=== PATIENT | female | born 2000 | race Caucasian/White ===

== ENCOUNTER 2024-04-24 11:00 | Inpatient (IN) ==
[2024-04-24 11:59] LABS: Urine Appearance Clear; Urine Bilirubin Negative (Negative); Urine Blood Negative (Negative); Urine Color Light-Yellow; Urine Glucose Negative (Negative); Urine Ketones Negative (Negative); Urine Nitrite Negative (Negative); Urine Protein Trace (Negative); Urine Specific Gravity 1.017 (1.002-1.030); Urine Urobilinogen Negative (Negative); Urine pH 6.5 (5.0-8.0)
[2024-04-24 12:26] LABS: Urine Benzodiazepine Screen None Detected (None Detect); Urine Cannabinoids Screen Presumptive Positive (None Detect); Urine Opiates Screen None Detected (None Detect)
[2024-04-24] MEDS ORDERED: Al Hydrox/Mg Hydrox/Simet LIQ 30 ML UDC PO PRN (13:15)
[2024-04-24] MEDS: Venlafaxine XR 75 mg PO SCH (14:32)
[2024-04-25 08:59] VITALS: BP 132/86
[2024-04-25] MEDS: risperiDONE-M 1 mg Oradis TAB PO SCH (10:56)
[2024-04-25] MEDS ORDERED: risperiDONE-M 1 mg Oradis TAB PO PRN (16:23)
[2024-04-25] MEDS: risperiDONE-M 1 mg Oradis TAB PO PRN (16:33)
[2024-04-25] MEDS: risperiDONE-M 1 mg Oradis TAB ONE (16:33)
[2024-04-26 08:12] LABS: ABS Basophils 0.1 10^3/uL (0.0-0.1); ABS Eosinophils 0.2 10^3/uL (0.0-0.5); ABS Monocytes 0.9 10^3/uL (0.0-0.9); ABS Neutrophils 6.9 10^3/uL (1.5-7.6); Eosinophil % 1.4 %; Hematocrit 39.7 % (35-45); Hemoglobin 13.1 g/dL (11.5-14.3); Lymphocyte % 27.5 %; Mean Corpuscular Hemoglobin 28.7 pg (27-33); Mean Corpuscular Hgb Conc 33.1 g/dL (31-36); Mean Corpuscular Volume 86.8 fL (80-97); Mean Platelet Volume 7.2 fL (7.5-11.2); Platelet Count 389 10^3/uL (150-450); Red Blood Count 4.58 10^6/uL (3.63-4.92); Red Cell Distribution Width 14.7 % (12-17)
[2024-04-26 08:36] LABS: ALT 15 U/L (7-52); AST 21 U/L (13-39); Acetaminophen < 15 mcg/mL; Albumin 4.3 g/dL (3.2-5.2); Albumin/Globulin Ratio 1.3 (1-3); Alcohol, S < 13 mg/dL (<13); Alkaline Phosphatase 65 U/L (35-149); Anion Gap 13 mmol/L (2-16); Blood Urea Nitrogen 6 mg/dL (6-24); CO2 Carbon Dioxide 23 mmol/L (22-32); Calcium 9.5 mg/dL (8.6-10.3); Chloride 104 mmol/L (101-111); Creatinine, Serum 0.65 mg/dL (0.51-0.95); Globulin 3.2 g/dL (2-4); Glucose 109 mg/dL (70-100); Salicylate < 2.50 mg/dL (<30); Sodium 140 mmol/L (135-145); Total Bilirubin 0.6 mg/dL (0.2-1.0); Total Protein 7.5 g/dL (6.4-8.9); eGFR CKD-EPI 128.4 (>60)
[2024-04-26 08:38] LABS: HDL Cholesterol 52.8 mg/dL
[2024-04-26 08:42] LABS: HCG Pregnancy < 0.60 mIU/mL
== END 2024-04-26 13:15 | disposition home or self-care (01) | DRG 754 ==
LOC: ED 11:00 → EDHOLD 13:15 → BSU 15:08
PROVIDERS: ADMIT Psychiatry & Neurology Psychiatry; ATTEND Psychiatry & Neurology Psychiatry